=== PATIENT | female | born 1975 | race Caucasian/White ===

== ENCOUNTER 2019-04-10 21:29 | Emergency (ER) | payer MEDICARE, SELFPAY ==
[2019-04-10 21:30] VITALS: BP 161/80; PULSE 82; RESP 16; TEMP 36.9; O2SAT 97; BMI 33.2
--- NOTE | 2019-04-10 22:48 | CT_ITS ---
STUDY: CT BRAIN WITHOUT CONTRAST REASON FOR EXAM: Female, 43 years old. Stuttering and dizziness RADIATION DOSAGE (If Supplied By Facility): CTDIvol = ( 44.99 ) mGy, DLP = ( 746 ) mGycm TECHNIQUE: Transaxial CT imaging of the brain was performed without administration of intravenous contrast material. Individualized dose optimization techniques were used for this CT. COMPARISON: No relevant priors. FINDINGS: Normal soft tissue structures. Normal calvarium. Normal size ventricles and extra-axial spaces for the patient's age. Normal white matter tracts of the cerebral hemispheres. Normal basal ganglia and thalami. Normal brainstem. Normal cerebellum. There is no intracranial hemorrhage. There are no findings of an acute ischemic infarction. Normal visualized paranasal sinuses. CT/Brain/Head without Contrast IMPRESSION: Normal unenhanced CT scan of the brain. Electronically Signed: Jose Raul Whitaker MD at 23:30 EDT Tel , Service support ,
--- NOTE | 2019-04-10 22:52 | ED.DCSUM_ITS ---
- ER Visit Summary Date of Service: 04/10/19 Chief Complaint: Dizziness History of Present Illness: The patient is a 43 F presenting with dizziness. Patient states she has a spinning sensation that is worse when she stands up or turns her head. She states this started yesterday. She also states yesterday she possibly had a seizure. She was with her friends and she fell. States they helped her up and then she fell again. She denies hitting her head or losing consciousness. She states she remembers flopping around on the ground. She states she has a history of nonepileptic seizures. She recalls this event. She is on tegretol for bipolar disorder, she is not currently on additional seizure medication. She denies alcohol or drug use. Denies chest pain or shortness of breath. Denies other complaints. Physical Examination: Vitals are stable. Patient is afebrile. Alert no acute distress. HEENT exam is unremarkable. Neck is supple, nontender Lungs are clear and equal bilaterally. Heart is regular rate and rhythm. Abdomen is soft nontender nondistended. Extremities are unremarkable. Skin is warm and dry. No focal neurologic deficit. NIH 0 Remainder of exam is unremarkable. Emergency Department Course and Treatment: Patient given IV fluids, meclizine. CT head shows no acute process. CBC, chemistries unremarkable. She continues to have a spinning sensation and was given Valium po. On reevaluation, patient is feeling improved. She is able to ambulate in the ED. She is given a prescription for meclizine. She is advised to follow-up with her primary care physician. Advised return to ED for worsening complaints. Disposition: Discharge home Impression: Benign positional vertigo This note was generated with [employer] dictation software. It may contain incorrect words, spelling, and punctuation that were not noted in review of the chart prior to signing ED Disposition - Plan for ED Patient: Instructions: ED BPV Vertigo Prescriptions: Meclizine HCl [Antivert] 25 mg PO TID PRN PRN #20 tablet PRN Reason: Dizziness Referrals: Jose Ramon Recinos MD [STAFF PHYSICIAN] - Care Physician,No Primary [Primary Care Provider] -
[2019-04-10] MEDS: 0.9% Normal Saline 1,000 ML 1000 ML IV (22:58)
[2019-04-10] MEDS: Meclizine HCl 25 MG Tablet PO (22:58)
[2019-04-10 23:04] LABS: Absolute Lymphocyte Count 3.15 X10^3/ul (0.83-4.51); Absolute Neutrophil Count 4.9 X10^3/uL (2.0-7.7); Basophil# 0.02 X10^3/uL; Basophil% 0.2 % (0-1); Eosinophil# 0.32 X10^3/uL; Eosinophils% 3.5 % (0-5); Hematocrit 39.9 % (37-47); Hemoglobin 13.5 g/dl (12.0-15.0); Lymphocyte # 3.15 X10^3/ul (4.0); Lymphocyte % 34.4 % (19-41); Mean Corp Hgb Conc 33.8 g/gl (32-36); Mean Corpuscular Hgb 29.5 pg (27.0-32.0); Mean Corpuscular Volume 87.1 fL (81-99); Monocyte# 0.76 X10^3/uL; Monocyte% 8.3 % (0-10); Neutrophil # 4.91 X10^3/uL (2.7-7.7); Neutrophil % 53.5 % (47-70); Platelet Count 271 K/mm3 (150-450); RBC Distribution Width SD 41.4 fl (35.1-43.9); Red Blood Count 4.58 M/mm3 (4.2-5.4); White Blood Count 9.2 K/mm3 (4.4-11.0)
[2019-04-10 23:05] LABS: POSITIVE COUNT NO; POSITIVE DIFFERENTIAL NO; POSITIVE MORPHOLOGY NO
[2019-04-10 23:24] LABS: Anion Gap 4 (5-15); BUN 17 mg/dL (7-18); BUN/Creat Ratio 16.8 RATIO (10-20); Calcium,Total 9.2 mg/dL (8.5-10.1); Chloride 106 mmol/L (98-107); Creatinine, Serum 1.01 mg/dL (0.55-1.02); EST Glomerular Filtration Rate 63 mL/min (>60); Est Glom Filt Rate - Afr Amer 76 mL/min (>60); Estimated Creatinine Clearance 50.52 ml/min; Glucose 105 mg/dL (74-106); Potassium 3.9 mmol/L (3.5-5.1); Sodium Level 140 mmol/L (136-145)
[2019-04-10 23:29] VITALS: BP 158/80; PULSE 80; RESP 15; O2SAT 98
[2019-04-11] MEDS: diazePAM 5 MG Tablet PO (00:03)
--- NOTE | 2019-04-11 00:54 | ED.DEP ---
ED Disposition - Plan for ED Patient: Instructions: ED BPV Vertigo Prescriptions: Meclizine HCl [Antivert] 25 mg PO TID PRN PRN #20 tablet PRN Reason: Dizziness Referrals: Care Physician,No Primary [Primary Care Provider] - Jose Ramon Recinos MD [STAFF PHYSICIAN] -
[2019-04-11 01:14] VITALS: BP 157/97; PULSE 88; RESP 18; O2SAT 98
== END 2019-04-11 01:14 | disposition home or self-care (01) ==
PROVIDERS: Emergency Provider Emergency Medicine
DX: H81.10 Benign paroxysmal vertigo, unspecified ear (principal); J45.909 Unspecified asthma, uncomplicated; F31.9 Bipolar disorder, unspecified; F41.9 Anxiety disorder, unspecified; G40.89 Other seizures; Z79.899 Other long term (current) drug therapy
CPT/HCPCS: 70450; 80048; 85025; 96360; 99283; J7030

== ENCOUNTER 2021-06-20 21:17 | Emergency (ER) | payer MEDICARE, MEDICAID, SELFPAY ==
[2021-06-20 21:17] VITALS: BP 151/89; PULSE 96; RESP 18; TEMP 36.8; O2SAT 99; BMI 31.0
--- NOTE | 2021-06-20 21:27 | EKG12_ITS ---
Test Reason : CP Blood Pressure : / mmHG Vent. Rate : 072 BPM Atrial Rate : 072 BPM P-R Int : 158 ms QRS Dur : 096 ms QT Int : 406 ms P-R-T Axes : 052 -01 028 degrees QTc Int : 444 ms Normal sinus rhythm Normal ECG Confirmed by MARIA ALEJANDRA CARDONA, TASIA ([id number]), city editor DAVIDSON ELIZONDO ([id number]) on 06/24/2021 9:37:52 AM Referred By: LYDIA Confirmed By:TASIA BESS MD
[2021-06-20 21:42] LABS: Absolute Lymphocyte Count 2.26 X10^3/uL (0.83-4.51); Absolute Neutrophil Count 4.2 X10^3/uL (2.0-7.7); Basophil# 0.05 X10^3/uL; Basophil% 0.7 % (0-1); Eosinophil# 0.33 X10^3/uL; Eosinophils% 4.5 % (0-5); Hematocrit 40.9 % (37-47); Hemoglobin 13.1 g/dL (12.0-15.0); Lymphocyte # 2.26 X10^3/ul (0.83-4.51); Lymphocyte % 30.5 % (19-41); Mean Corpuscular Hgb 28.5 pg (27.0-32.0); Mean Corpuscular Volume 89.1 fL (81-99); Monocyte# 0.51 X10^3/uL; Monocyte% 6.9 % (0-10); NRBC Flagged by Analyzer 0 % (0-5); Neutrophil # 4.23 X10^3/uL (2.7-7.7); Neutrophil % 57.1 % (47-70); Platelet Count 320 K/mm3 (150-450); RBC Distribution Width CV 12.7 % (11.6-14.6); RBC Distribution Width SD 41.4 fl (35.1-43.9); Red Blood Count 4.59 M/mm3 (4.2-5.4); White Blood Count 7.4 K/mm3 (4.4-11.0)
[2021-06-20] MEDS: Aspirin 81 MG TAB.CHEW 324 MG PO (21:42)
[2021-06-20 21:49] VITALS: PULSE 82; RESP 16; O2SAT 99
--- NOTE | 2021-06-20 21:50 | RAD_ITS ---
INDICATION: chest pain EXAMINATION/TECHNIQUE: X-RAY - XR Chest 1 View COMPARISON: 02/06/2017. FINDINGS: The lungs are clear. The cardiomediastinal silhouette is unremarkable. No pleural effusion or pneumothorax. No acute osseous abnormalities. RAD/Chest 1 View (Portable) IMPRESSION: No acute radiographic abnormalities. Electronically Signed: Miki Villarreal MD at 22:11 EDT Tel , Service support ,
[2021-06-20 22:01] LABS: Anion Gap 6 (5-15); BUN 17 mg/dL (7-18); Calcium,Total 9.4 mg/dL (8.5-10.1); Chloride 105 mmol/L (98-107); Creatinine, Serum 1.21 mg/dL (0.55-1.02); EST Glomerular Filtration Rate 51 mL/min (>60); Est Glom Filt Rate - Afr Amer 61 mL/min (>60); Estimated Creatinine Clearance 41.29 ml/min; Glucose 115 mg/dL (74-106); Potassium 3.3 mmol/L (3.5-5.1); Sodium Level 139 mmol/L (136-145); Troponin-I HS 4.8 pg/mL (3.0-53.7)
--- NOTE | 2021-06-20 22:24 | ED.VIS.CHEST ---
HPI History of Present Illness Chief Complaint: Chest Pain Narrative Narrative: 45-year-old female presenting with left flank pain that radiates up into the left posterior chest. She states she was seen for this on 06/12/2021 and was told she may have had a heart attack. She states this was on an outpatient basis it was not admitted to the hospital. She is unsure if the heart attack was diagnosed by blood work or EKG. She states that this pain has been here for 2 weeks and was seen 1 week ago. Patient denies shortness of breath, fever chills, generalized weakness. She describes her pain as a spasm in which she has to abductor her left arm over her head in order to release the spasm in the left posterior ribs. PFSH PFS Medical History Brain trauma Renal insufficiency Home Medications carbamazepine [Tegretol] 200 mg PO BID 04/10/19 [History Last Taken Unknown] escitalopram oxalate 10 mg PO DAILY 04/10/19 [History Last Taken Unknown] meclizine 25 mg PO TID PRN PRN #20 tab 04/11/19 [Rx Last Taken Unknown] cyclobenzaprine 10 mg PO TID PRN #20 tablet 06/20/21 [Rx Last Taken Unknown] Allergy/AdvReac Type Severity Reaction Status Date / Time erythromycin lactobionate Allergy Hives Verified 06/20/21 21:21 [From Erythrocin] Penicillins [PCN] Allergy Hives Verified 06/20/21 21:21 Social History Smoking Status: Never smoker ROS ROS ED Constitutional Constitutional ED: Denies chills or fever(s) Eyes Eyes: Denies blurry vision or change in vision ENT ENT ED: Denies rhinorrhea or sore throat Cardiovascular Cardiovascular: Reports chest pain; Denies palpitations or racing heartbeat Respiratory/Chest Respiratory/Chest: Denies cough, dyspnea or dyspnea on exertion Gastrointestinal Gastrointestinal: Denies abdominal pain, diarrhea, nausea or vomiting Genitourinary Genitourinary ED: Denies dysuria or hematuria Musculoskeletal Musculoskeletal: Reports back pain; Denies arthralgias or myalgias Integumentary Denies abscess or rash Neurologic Neurologic: Denies headache(s) or paresthesias Psychiatric Psychiatric: Denies anxiety or depression EXAM Physical Exam Const Vital Signs: 06/20/21 21:17 06/20/21 21:27 06/20/21 21:44 Temperature 98.2 F Temperature Source Temporal Pulse Rate 96 Respiratory Rate 18 Respiratory Effort Normal Respiratory Pattern Normal Blood Pressure 151/89 H Blood Pressure Mean 109 Pulse Ox 99 Oxygen Delivery Method Room Air Room Air 06/20/21 21:49 Temperature Temperature Source Pulse Rate 82 Respiratory Rate 16 Respiratory Effort Respiratory Pattern Blood Pressure Blood Pressure Mean Pulse Ox 99 Oxygen Delivery Method Room Air Positive obese General Appearance ED: NAD Nutritional Appearance: obese HEENT Reports moist mucous membranes normocephalic and atraumatic Eyes PERRL and EOMs intact bilaterally Chest Wall inspection of chest normal Chest Narrative: Tenderness to palpation left posterior ribs and left flank. No CVA tenderness. Resp normal respiratory effort Effort and Inspection: respiratory distress Cardio regular rate and regular rhythm Extremity normal to inspection General Extremety ED: Negative for edema or tenderness General Extremity: Negative for edema Neuro oriented x3 Sensorium / Orientation: awake and alert Psych mental status grossly normal Skin no rashes or lesions noted Heart Score History: Slightly/Non-Suspicious ECG: Normal Age: >45 - <65 years Risk Factors: 1 or 2 Risk Factors Troponin: </= Normal Limit Score: 2 MDM MDM MDM Narrative Medical decision making narrative: 45-year-old female presenting with posterior left rib pain and left flank pain. She had EKG performed on arrival which showed a sinus rhythm with a ventricular rate of 72 bpm without signs of ST elevation, depression, dysrhythmia on my interpretation. Chest x-ray is interpreted by myself shows no acute cardiopulmonary process. Patient was stating that she thought she might have an acute kidney injury secondary to injury distantly. I did review her lab work and she did have a BUN of 21 and a creatinine of 1.01 with a GFR of 66.3. LFTs were normal. High-sensitivity troponin is 4.8 and this has been going on for 2 weeks I have a low suspicion for cardiac etiology. Patient's PERC negative. I feel at this time her pain is most consistent with a musculoskeletal pain and may possibly be muscle spasm. She will be counseled to use Tylenol due to her AMLA. She is also counseled to increase her p.o. fluids. I will give her something for muscle spasms at home. I see no documentation of any sort of heart attack in the medical record. The CT scan of her brain done 06/12/2021 is negative. Patient will be given potassium 20 mEq to replace her low potassium. Her creatinine slightly elevated at 1.21. Patient is counseled to continue plenty of p.o. fluids. She is given cyclobenzaprine in the ED as well as for home. Her family will watch her to make sure she does not have any falls. As she has had some dizziness since her head injury. This may be postconcussive. Patient will be discharged home in stable condition. Impression: 1. Atypical chest pain 2. Hypokalemia 3. Muscle spasm Lab Data Attestation: I reviewed the patient's lab results. Labs: Laboratory Results - last 24 hr 06/20/21 06/20/21 21:35 21:35 WBC 7.4 RBC 4.59 Hgb 13.1 Hct 40.9 MCV 89.1 MCH 28.5 MCHC 32.0 RDW Std Deviation 41.4 RDW Coeff of Tameka 12.7 Plt Count 320 MPV 10.0 Immature Gran % (Auto) 0.300 Neut % (Auto) 57.1 Lymph % (Auto) 30.5 Gonzales % (Auto) 6.9 Eos % (Auto) 4.5 Baso % (Auto) 0.7 Absolute Neuts (auto) 4.2 Absolute Lymphs (auto) 2.26 Nucleated RBC % 0 Sodium 139 Potassium 3.3 L Chloride 105 Carbon Dioxide 28.0 Anion Gap 6 BUN 17 Creatinine 1.21 H Estim Creat Clear Calc 41.29 Est GFR (MDRD) Af Amer 61 Est GFR (MDRD) Non-Af 51 L BUN/Creatinine Ratio 14.0 Glucose 115 H Calcium 9.4 Troponin I High Sens 4.8 Radiography Diagnostic Testing: Radiology Impression Chest X-Ray 06/20/21 21:50 IMPRESSION: No acute radiographic abnormalities. Electronically Signed: Miki Villarreal MD at 22:11 EDT Tel , Service support , Discharge Plan Triage Chief Complaint: Chest Pain ED Provider: Mati Barbosa Dx/Rx/DC Orders Instructions: Acute Kidney Failure Dc, ED Chest Pain, Noncardiac, ED Hypokalemia Prescriptions: New cyclobenzaprine 10 mg tablet 10 mg PO TID PRN (Reason: Muscle Spasm) Qty: 20 RF: 0 No Action carbamazepine [Tegretol] 200 MG tablet 200 mg PO BID RF: 0 escitalopram oxalate 10 MG tablet 10 mg PO DAILY RF: 0 meclizine 25 MG tablet 25 mg PO TID PRN PRN (Reason: Dizziness) Qty: 20 RF: 0 Primary Care Provider: Care Physician,No Primary Referrals: Care Physician,No Primary [Primary Care Provider] - Disposition Disposition: Home, Self Care
[2021-06-20] MEDS: Potassium Chloride Oral Tablet 20 MEQ PO (22:53)
[2021-06-20] MEDS: cycloBENZAPRine HCl 10 MG Tablet PO (22:53)
[2021-06-20 22:57] VITALS: PULSE 65; RESP 15; O2SAT 99
== END 2021-06-20 23:14 | disposition home or self-care (01) ==
PROVIDERS: Emergency Provider Student in an Organized Health Care Education/Training Program
DX: R07.89 Other chest pain (principal); E87.6 Hypokalemia; M62.838 Other muscle spasm
CPT/HCPCS: 71045; 80048; 84484; 85025; 93005; 99284; A4216